=== PATIENT | female | born 1970 | race Caucasian/White ===

== ENCOUNTER → 2024-02-15 15:08 | Outpatient (REF) | payer OTHER, SELFPAY | LOC: WDC 15:08 | PROVIDERS: ATTENDING PHYSICIAN Obstetrics & Gynecology; FAMILY PHYSICIAN Family Medicine | DX: Z12.31 Encounter for screening mammogram for malignant neoplasm of breast (principal) | CPT/HCPCS: 77063; 77067 ==

== ENCOUNTER → 2024-07-11 06:22 | Day surgery (SDC) | payer OTHER, SELFPAY | LOC: GI 06:22 | PROVIDERS: ATTENDING PHYSICIAN Internal Medicine Gastroenterology | DX: Z12.11 Encounter for screening for malignant neoplasm of colon (principal); K57.30 Diverticulosis of large intestine without perforation or abscess without bleeding; K63.5 Polyp of colon; Z83.719 Family history of colon polyps, unspecified; R12 Heartburn; K22.2 Esophageal obstruction; K44.9 Diaphragmatic hernia without obstruction or gangrene; K31.7 Polyp of stomach and duodenum | CPT/HCPCS: 45385; 43239; 88305 ==

== ENCOUNTER 2024-08-07 12:05 | Emergency (ER) | payer OTHER, SELFPAY ==
[2024-08-07 12:06] VITALS: BP 127/87
--- NOTE | 2024-08-07 13:45 | ED.GENMED ---
History of Present Illness
General
Chief Complaint: Musculo-Skeletal Complaint
Source: patient
Exam Limitations: none
Time Seen by Provider: 08/07/24 12:51
Nursing documentation reviewed up to this point in time: agreed with
History of Present Illness
History of Present Illness:
Patient is a 53 y.o female presenting for evaluation of left ankle injury following mechanical fall last night. Patient states that she was walking out of her garage when she missed the step down inverting her left ankle. Patient was able to call
for help and her came and assisted her back inside. Patient states there was no head strike or loss of consciousness. Patient denies sustaining any other injuries.
Patient did ice and elevate throughout the night last night although was having difficulty weightbearing due to pain and came to the emergency department for evaluation.
Apparently�patient did contact an urgent care to be seen there although they did not have an x-ray tech available and was referred to the emergency department. She did take meloxicam last night that she had leftover from prior procedure which did
help with pain
Past History
Past History
ED Past Medical History: Other (Migraines); Negative Asthma, HTN, Hypercholesterolemia or NIDDM
ED Past Surgical History: , Orthopedic and Other
Social History
Tobacco: Non-smoker
Alcohol: Occasional
Drug: None
Personal:
Living: with family
Review of Systems
Review of Systems
Allergies reviewed?: Yes
All Other Systems: ROS reviewed and negative except as documented in HPI and ROS
Phy Exam
Physical Exam
Physical Exam:
Vitals: Patient's vital signs are stable. Afebrile
General: Patient is well appearing, no acute distress
Skin: Warm and dry, no rashes or lesions
Head: Normocephalic, atraumatic
Throat: Protecting airway
Neck: Normal ROM, no cervical spine tenderness
Cardiac: Regular rate
Pulm: No apparent respiratory distress
Abdomen: Nondistended
Extremities: Mild edema of left lateral malleolus. Mild pain just anterior to left lateral malleolus and posterior to left lateral malleolus. No bony tenderness of lateral or medial malleolus. No tenderness at base of fifth metatarsal or midfoot.
No calcaneal tenderness. Mild tenderness at left fibular head. Achilles intact. Full ability to dorsiflex and plantarflex at left ankle. Sensation fully intact. Palpable DP pulse
Neuro: Grossly intact
Psychiatric: Normal affect.
Course
Orders/Labs/Results
Orders:
Orders
08/07/24 12:06
Ankle, left 3 view CR [CR Ankle - Left Min 3 Views ] Urgent
Comment:
Reason For Exam: pain
08/07/24 13:26
Ibuprofen [Motrin] 400 mg PO NOW STA
Tib/Fib, Left 2 View [CR Leg Tibia/fibula Left 2 Vw] Urgent
Comment:
Reason For Exam: Left ankle inversion, pain at head of left fibula
08/07/24 14:39
Ortho Boot Left- Treatment ONCE
Short or tall?: Tall
Vital Signs
Initial and Last Documented VS:
Initial Vital Signs
Temp Pulse Resp BP Pulse Ox
98.2 F 78 20 127/87 93
08/07/24 12:06 08/07/24 12:06 08/07/24 12:06 08/07/24 12:06 08/07/24 12:06
Last Documented Vital Signs
Temp Pulse Resp BP Pulse Ox
98.2 F 74 20 124/74 99
08/07/24 12:06 08/07/24 15:00 08/07/24 15:00 08/07/24 15:00 08/07/24 15:00
MDM/Problems Addressed
Differential Diagnosis Includes:
Not limited to: Ankle sprain, ankle fracture, foot sprain, fibular head fracture, etc.
MDM/Problems Addressed:
53-year-old female with left ankle pain following ankle inversion injury last night. No other associated injuries. No head strike. Limited ability to weight-bear due to discomfort. This was a mechanical fall. On exam�patient is well-appearing,
in no apparent distress. Mild edema of left lateral malleolus with tenderness near ATFL insertion site and just posterior to lateral malleolus. She does have mild tenderness of left fibular head, as well. Left lower extremity neurovascular
intact. No evidence of other extremity injury on exam. An ankle x-ray was obtained in triage that any acute abnormalities. Given pain near head of left fibula�will add on x-ray of left tibia/fibula. Will give Motrin and ice.
Update: X-ray of the tibia/fibula without any acute abnormalities or evidence of fracture. Suspect likely left ankle sprain. Will place patient in Ortho boot. She did already order a knee scooter to have at home. Recommended rest, ice,
compression, and elevation. Will provide orthopedics for follow-up. Return precautions discussed. Patient ambulating in Ortho boot out of emergency department. Case discussed with attending physician.
Chronic conditions affecting care:
N/A
Acute Exacerbation and/or Progression of Chronic Illness:
N/A
*Radiology
Radiology exam reviewed: preliminary read by ED provider (Reviewed by me-no evidence of fracture) and radiology read reviewed
*Pulse Oximetry
Patient hypoxic: no
*EKG
Interpreted by ED Provider?: NA
*Customer Field Representative Interpretation
Rate: Customer Field Representative- N/A
*Critical Care Note
Total Time (30-74mins, 75-104mins- exclusive of procedures): Not Applicable
ED Attending Note
-
Portions of this chart may have been created with voice recognition software.� Occasional wrong word or��sound alike� substitutions may have occurred due to the inherent limitations of voice recognition software.
Discharge Plan
Departure
Patient Disposition: Home (Routine Discharge)
Date of Disposition: 08/07/24
Time of Disposition: 14:42
Patient with high blood pressure during this ER visit?: No
Condition: Good
Covid-19: Not Applicable
Discharge Problem:
Left ankle sprain
Instructions: Sprain (DC)
Prescriptions:
No Action
No Current Medications
silver sulfadiazine [SSD] 400 GRAM cream
400 g topical DAILY Qty: 1 0RF
albuterol sulfate 90 mcg/actuation HFA aerosol inhaler
2 puff inhalation Q6H PRN (Reason: shortness of breath or wheezing) Qty: 6.7 0RF
albuterol sulfate 2.5 mg /3 mL (0.083 %) solution for nebulization
2.5 mg inhalation QID PRN (Reason: shortness of breath or wheezing) Qty: 180 0RF
codeine-guaifenesin 10-100 mg/5 mL liquid
5 ml PO ONCE PRN (Reason: Cough) Qty: 100 0RF
Referrals:
Bruno Michaud DO [Family Provider] -
Bismark Jalloh MD [Active] - Next open appointment
Activity Restrictions/Additional Instructions:
RETURN TO THE EMERGENCY DEPARTMENT WITH ANY NUMBNESS/TINGLING IN LEFT LEG/FOOT, INTRACTABLE PAIN, WORSENING IN CURRENT SYMPTOMS, OR ANY OTHER CONCERNS
-As discussed�your x-ray showed no evidence of acute fracture while in the emergency department. It is likely that you sustained a left ankle sprain.
-You should keep your left foot in boot and weight-bear as tolerated. Continue to ice and elevate your left leg as often as possible. Take Motrin as needed for pain.
-Follow-up with orthopedics for further evaluation/management as needed.
Monitor symptoms closely and return to the emergency department any acute worsening/new symptoms or any other concerns
Interventions
Interventions:
*Risk Screen - Suicide Last Done: 08/07/24 12:06
*General Assessment Last Done: 08/07/24 12:06
*Neglect/Abuse Screening Last Done: 08/07/24 12:06
*Nursing Disposition Last Done: 08/07/24 15:00
ED-Musculoskeletal Assessment Last Done: 08/07/24 14:00
Discharge Date and Time
Discharge Date/Time: 08/07/24 15:40
Print Language: CAMBODIAN
[2024-08-07] MEDS: MOTRIN 400 MG PO (13:47)
[2024-08-07 15:00] VITALS: BP 124/74
== END 2024-08-07 15:40 | disposition home or self-care (01) ==
LOC: EMR 12:05
PROVIDERS: EMERGENCY PHYSICIAN Emergency Medicine; FAMILY PHYSICIAN Family Medicine
DX: S93.402A Sprain of unspecified ligament of left ankle, initial encounter (principal); W19.XXXA Unspecified fall, initial encounter; X50.1XXA Overexertion from prolonged static or awkward postures, initial encounter
CPT/HCPCS: 99283; 73590; 73610

== ENCOUNTER 2024-09-19 11:23 | Outpatient (RCR) | payer OTHER, SELFPAY | END 2024-09-19 23:59 | disposition home or self-care (01) | LOC: RPT 11:23 | PROVIDERS: ATTENDING PHYSICIAN Orthopaedic Surgery; FAMILY PHYSICIAN Family Medicine | DX: M25.572 Pain in left ankle and joints of left foot (principal); Z73.6 Limitation of activities due to disability; R26.89 Other abnormalities of gait and mobility; M62.81 Muscle weakness (generalized); X50.1XXD Overexertion from prolonged static or awkward postures, subsequent encounter | CPT/HCPCS: 97110; 97162; 97535 ==

== ENCOUNTER 2024-10-20 13:00 | Outpatient (RCR) | payer OTHER, SELFPAY | END 2024-10-20 23:59 | disposition home or self-care (01) | LOC: RPT 13:00 | PROVIDERS: ATTENDING PHYSICIAN Orthopaedic Surgery; FAMILY PHYSICIAN Family Medicine | DX: M25.572 Pain in left ankle and joints of left foot (principal); Z73.6 Limitation of activities due to disability; R26.89 Other abnormalities of gait and mobility; M62.81 Muscle weakness (generalized); X50.1XXD Overexertion from prolonged static or awkward postures, subsequent encounter | CPT/HCPCS: 97110; 97140 ==

== ENCOUNTER → 2024-11-10 20:16 | Outpatient (REF) | payer OTHER, SELFPAY | LOC: MRI 3T 20:16 | PROVIDERS: ATTENDING PHYSICIAN Family Medicine; FAMILY PHYSICIAN Psychiatry & Neurology Neurology | DX: H93.A9 Pulsatile tinnitus, unspecified ear (principal) | CPT/HCPCS: 70546; 70553; A9585 ==

== ENCOUNTER → 2024-11-30 10:20 | Outpatient (REF) | payer OTHER, SELFPAY | LOC: HWRAD 10:20 | PROVIDERS: ATTENDING PHYSICIAN Student in an Organized Health Care Education/Training Program; FAMILY PHYSICIAN Family Medicine | DX: N95.0 Postmenopausal bleeding (principal) | CPT/HCPCS: 76830; 76856 ==

== ENCOUNTER → 2025-03-13 14:50 | Outpatient (REF) | payer OTHER, SELFPAY | LOC: WDC 14:50 | PROVIDERS: ATTENDING PHYSICIAN Student in an Organized Health Care Education/Training Program; FAMILY PHYSICIAN Family Medicine | DX: Z12.31 Encounter for screening mammogram for malignant neoplasm of breast (principal) | CPT/HCPCS: 77063; 77067 ==

== ENCOUNTER 2025-04-03 06:16 | Day surgery (SDC) | payer OTHER, SELFPAY ==
[2025-03-31 11:32] LABS: Hematocrit 39.6 % (37.0-47.0); Hemoglobin 13.0 g/dL (12.0-16.0); Mean Corp Hgb Conc. 32.8 g/dL (33.0-37.0); Mean Corpuscular Volume 93.0 fL (81.0-99.0); Nucleated Red Blood Cells % 0 %; Platelet Count 210 10^3/uL (130-400); Red Cell Dist. Width 12.4 % (11.5-14.5)
[2025-03-31 12:32] VITALS: BMI 22.4
[2025-04-03] VITALS (9 sets, daily range): BP systolic 99–132; BP diastolic 63–71; BMI 22.4
--- NOTE | 2025-04-03 08:04 | HPS.HSE ---
Family Physician
-
Family Physician: Bruno Michaud
Chief Complaint
-
hysteroscopy
History of Present Illness
Patient is a 54yo who presents for hysteroscopy D&C. Patient had postmenopausal bleeding. She is has estrogen pellets and is taking oral progesterone. She had a pelvic US that showed ET 6mm and EMB was recommended. Pathology from EMB showed a
fragment of benign endometrial polyp and proliferative endometrium showing breakdown. Hysteroscopy D&C recommended.
PMHx: migraines, reflux, anxiety
Meds: Qulipta 60mg qD, vyvanse 20mg qD, protonix 40mg qD, wellbutrin 150mg, progesterone 200mg, estrogen pellets, rizatriptan 10mg prn, magnesium glycinate, riboflavin 150mg
Surghx: C/Sx1, breast augmentation x2, hand surgery
All: prawns
Socialhx: occasional etoh, denies tobacco, etoh or illicit drug
OBHx: C/Sx1, VBACx2
Medical History
Past Medical History
Past Medical History: Reports Psychiatric and Other
Past Surgical History: Reports and Other
Social History
Tobacco: Non-smoker
Alcohol: Occasional
Drug: None
Family History
Family History: Other (brother- MS)
Allergies / Home Medications
Allergies reflects when Allergies were last updated in [employer].
Home Medications with original date entered in [employer]
Allergy/Medication List:
Meds: Qulipta 60mg qD, vyvanse 20mg qD, protonix 40mg qD, wellbutrin 150mg, progesterone 200mg, estrogen pellets, rizatriptan 10mg prn, magnesium glycinate, riboflavin 150mg
All: prawns
Review of Systems
-
A 12 point ROS was completed and negative except as noted: Yes
Physical Exam
Physical Exam
General: Well Developed and Well Nourished
HEENT: NormoCephalic
Respiratory: Non Labored Respirations
Cardiac: Regular Rhythm
Skin: Warm and Dry
Neuro: Awake and Alert
Psych: Calm
Laboratory Results
-
03/31/25 09:30
Impression/Plan
-
IMPRESSION:
Patient is a 54yo who presents for hysteroscopy D&C
PLAN:
- Procedure and expectations reviewed. Reviewed there might not be an endometrial polyp as seen on the endometrial biopsy but if it is present, it will be removed
- Risks, benefits and alternatives to the procedure reviewed including bleeding, infection, uterine perforation, damage to surrounding structures, or need for future operations. Patient consented for blood transfusion in case of emergency
- Post-procedure expectations reviewed
[2025-04-03] MEDS: NORMOSOL-R/PLASMALYTE-A 1000 IV (09:26)
--- NOTE | 2025-04-03 11:17 | OR.RPT ---
Operative Report
Operative Report
Procedure date: 04/03/2025
Preop diagnosis:
- Postmenopausal bleeding
- Endometrial polyp
Postop diagnosis
- Postmenopausal bleeding
- Endometrial polyp
Procedure
- Hysteroscopy, dilation and curettage
Surgeon: Justin
Anesthesia: General
EBL: 5cc
Complications: none
Findings
- Normal appearing external genitalia
- Cervix without lesions or masses
- Bimanual exam with normal sized anteverted uterus, no adnexal masses
- Hysteroscopic evaluation with bilateral tubal ostia visualized. Atrophic endometrium. No endometrial polyp.
Pathology: endometrial curettings
Indication:
Patient is a 54yo who presents for hysteroscopy, dilation and curettage. She had an episode of postmenopausal bleeding. A pelvic ultrasound showed a thickened endometrium at 6mm. She then had an endometrial biopsy in the office that showed a
fragment of a benign endometrial polyp and proliferative endometrium showing breakdown. Given endometrial polyp on endometrial biopsy, it was recommended to proceed with hysteroscopy, dilation and curettage with polypectomy. Risks, benefits and
alternatives to the procedure were discussed and all questions answered. Consents were signed.
Procedure:
Patient was taken to the operating room and placed under general anesthesia. She was placed in the dorsal lithotomy position with Sheldon type stirrups. She was prepped and draped in the normal sterile fashion. Bimanual exam revealed the
aforementioned findings. A Cary retractor was placed in the anterior portion of the vagina and a Cary retractor in the posterior aspect of the vagina revealing good visualization the cervix. The anterior lip of the cervix was grasped with a single
tooth tenaculum. The uterus was sounded to 7cm. The cervix was sequentially dilated to accommodate the MyoSure hysteroscope. The hysteroscope was advanced under direct visualization. Hysteroscopic evaluation revealed the aforementioned findings. No
endometrial polyp was visualized. The hysteroscope was removed. A size 0 curette was introduced into the cervix. The uterus was curetted in a clockwise fashion until uterine cry was felt in all quadrants. Endometrial curettings were sent to
pathology for evaluation. The tenaculum was removed from the cervix and good hemostasis was noted. All instruments were removed from the vagina.
The patient tolerated the procedure well. All sponge and instrument counts were correct x2. She was taken to PACU in stable condition.
[2025-04-03] MEDS: DILAUDID 0.25 MG IV (12:05)
== END 2025-04-03 13:42 | disposition home or self-care (01) ==
LOC: SDS 06:16
PROVIDERS: ATTENDING PHYSICIAN Student in an Organized Health Care Education/Training Program; FAMILY PHYSICIAN Family Medicine
DX: N85.8 Other specified noninflammatory disorders of uterus (principal); N95.0 Postmenopausal bleeding
CPT/HCPCS: 58558; 36415; 85025; 86850; 86900; 86901; 88305

== ENCOUNTER → 2025-04-09 11:17 | Outpatient (REF) | payer OTHER, SELFPAY | LOC: PAVMRI 11:17 | PROVIDERS: ATTENDING PHYSICIAN Orthopaedic Surgery; FAMILY PHYSICIAN Family Medicine | DX: S93.492D Sprain of other ligament of left ankle, subsequent encounter (principal); S93.432D Sprain of tibiofibular ligament of left ankle, subsequent encounter | CPT/HCPCS: 73721 ==